=== PATIENT | female | born 1950 ===

== ENCOUNTER 2024-09-03 12:11 | Emergency (ER) | payer MEDICARE, OTHER, SELFPAY ==
[2024-09-03 12:12] VITALS: BP 127/85
--- NOTE | 2024-09-03 12:38 | ED.GENMED ---
History of Present Illness
General
Chief Complaint: Musculo-Skeletal Complaint
Source: patient
Time Seen by Provider: 09/03/24 12:21
History of Present Illness
History of Present Illness:
74yoF with a history of Grave's disease s/p thyroidectomy presenting with her for evaluation of neck pain. Patient woke up yesterday morning with bilateral shoulder pain. She describes a tightness in her muscles and pain is worse with
movement. She was lifting heavy boxes the day before her symptoms started. She denies any fall/trauma. Her pain today is mostly located in the lateral neck region. She has been taking Tylenol without relief. Pain is currently rated as an 8/10 in
severity. She was seen at urgent care yesterday and was given a prescription for a Medrol dose pack and Flexeril but the pharmacy was closed when she went to pick the prescriptions up. She denies any fever, vomiting, chest pain, photophobia. No
pain, paresthesias, or weakness of the extremities. No prior history of neck issues.
Phy Exam
General Physical Exam
General Presentation: well appearing and no apparent distress
General age: appears stated age
General Skin: warm and dry
General Habitus: normal
General Mental: alert
ENT Exam
ENT Exam: neck supple, normocephalic and other (+Tenderness to cervical portion of bilateral trapezius muscles. No midline spinous process tenderness. ROM decreased 2/2 pain although there is no meningismus. No skin changes.)
Cardiovascular Exam
Cardiovascular Exam: regular rate/rhythm, no murmur and normal peripheral pulses (2+ radial and DP pulses bilaterally)
Pulmonary Exam
Pulmonary Exam: lungs clear, no respiratory distress, no rales, no crackles and no rhonchi
Neurological Exam
Neurological Exam: alert and no motor deficits
[place] Coma Scale
Eye Opening: Spontaneous
Verbal Response: Oriented
Motor Response: Obeys Commands
GCS Total Score: 15
Skin Exam
Skin Exam: normal color and warm/dry
Psychiatric Exam
Psychiatric Exam: normal mood/affect
Course
Orders/Labs/Results
Orders:
Orders
09/03/24 12:36
Dexamethasone Sod Phosphate [Decadron] 10 mg IV NOW STA
Ketorolac [Toradol] 15 mg IV NOW STA
Oxycodone [Roxicodone] 5 mg PO NOW STA
09/03/24 12:37
Lidocaine [Lidocaine 4% Patch] 1 patch TOPICAL ONCE ONE
Apply Lidocaine patch(s) to:: neck
Vital Signs
Initial and Last Documented VS:
Initial Vital Signs
Temp Pulse Resp BP Pulse Ox
98.1 F 76 16 127/85 98
09/03/24 12:12 09/03/24 12:12 09/03/24 12:12 09/03/24 12:12 09/03/24 12:12
Last Documented Vital Signs
Temp Pulse Resp BP Pulse Ox
98.1 F 81 16 127/85 99
09/03/24 12:12 09/03/24 14:14 09/03/24 14:14 09/03/24 12:12 09/03/24 14:14
MDM/Problems Addressed
Differential Diagnosis Includes:
74yoF here with neck pain x 1 day. Started the day after lifting heavy boxes. No direct trauma. No improvement with Tylenol. No associated fevers, vomiting, photophobia. No CP/SOB. No weakness or paresthesias of the extremities. VSS. There is
reproducible muscular tenderness on exam. No midline spinous process tenderness. No meningismus. Differential diagnosis includes but is not limited to: muscular strain/spasm, doubt fracture, no evidence of radiculopathy
Initial ED plan: Presentation consistent with cervical strain. No indication for imaging at this time. IV Toradol, Decadron, oxycodone, and lidocaine patch ordered for pain.
*Critical Care Note
Total Time (30-74mins, 75-104mins- exclusive of procedures): Not Applicable
Update Note
Update Note:
Pain much improved on reassessment and is now a 3/10 in severity. Patient already dressed and ready to go home. She declines a prescription for pain medication. Supportive care discussed including heat, lidocaine patches, PRN Tylenol/ibuprofen.
Advised f/u with PCP and pain management. ED return precautions discussed. She expressed understanding and is in agreement with plan. She was discharged in stable condition.
ED Attending Note
-
Portions of this chart may have been created with voice recognition software.� Occasional wrong word or��sound alike� substitutions may have occurred due to the inherent limitations of voice recognition software.
Discharge Plan
Departure
Patient Disposition: Home (Routine Discharge)
Date of Disposition: 09/03/24
Time of Disposition: 14:04
Patient with high blood pressure during this ER visit?: No
Discharge Problem:
Strain of cervical portion of both trapezius muscles
Instructions: Cervical Muscle Strain
Referrals:
Galen Karimi MD [Active] -
Jose De Leon MD [Family Provider] -
Activity Restrictions/Additional Instructions:
Apply heat to affected area. Use lidocaine patches daily (12 hours on, 12 hours off). Take ibuprofen 400mg every 6 hour as needed for pain. You may continue to use Tylenol.
Please follow up with your family doctor and pain management.
Return to the ER with any new or worsening symptoms.
Interventions
Interventions:
*Risk Screen - Suicide Last Done: 09/03/24 13:33
*General Assessment Last Done: 09/03/24 13:33
*Neglect/Abuse Screening Last Done: 09/03/24 13:33
*ED COVID-19 Vaccine History Last Done: 09/03/24 13:33
*Nursing Disposition Last Done: 09/03/24 14:14
ED-Musculoskeletal Assessment Last Done: 09/03/24 13:34
Discharge Date and Time
Discharge Date/Time: 09/03/24 14:15
Print Language: [place]
[2024-09-03] MEDS: ROXICODONE 5 MG PO (13:12)
[2024-09-03] MEDS: DECADRON 10 MG IV (13:12)
[2024-09-03] MEDS: TORADOL 15 MG IV (13:12)
[2024-09-03] MEDS: LIDOCAINE 4% PATCH 1 PATCH TOPICAL (13:18)
== END 2024-09-03 14:15 | disposition home or self-care (01) ==
LOC: EMR 12:11
PROVIDERS: EMERGENCY PHYSICIAN Emergency Medicine; FAMILY PHYSICIAN Internal Medicine
DX: S16.1XXA Strain of muscle, fascia and tendon at neck level, initial encounter (principal); S29.012A Strain of muscle and tendon of back wall of thorax, initial encounter; X58.XXXA Exposure to other specified factors, initial encounter; E89.0 Postprocedural hypothyroidism
CPT/HCPCS: 99282; 96374; 96375

== ENCOUNTER 2025-03-16 13:27 | Emergency (ER) | payer MEDICARE, OTHER, SELFPAY ==
[2025-03-16 13:34] VITALS: BP 118/84
[2025-03-16 13:55] LABS: % Basophils 0.2 % (0-2); % Eosinophils 0.5 % (0-6); % Immature Granulocytes 0.2 % (0-0.5); % Monocytes 6.4 % (1.7-9.3); % Neutrophils 66.7 % (42.2-75.2); Absolute Lymphocytes 2.2 10^3/uL (1.2-3.4); Absolute Monocytes 0.5 10^3/uL (0.1-0.6); Absolute Neutrophils 5.6 10^3/uL (1.4-6.5); Hematocrit 44.4 % (37.0-47.0); Mean Corp Hgb Conc. 33.8 g/dL (33.0-37.0); Mean Corpuscular Hgb 31.2 pg (27.0-31.0); Mean Corpuscular Volume 92.3 fL (81.0-99.0); Mean Platelet Volume 10.5 fL (7.4-10.4); Nucleated Red Blood Cells % 0 %; Platelet Count 202 10^3/uL (130-400); Red Blood Cell Count 4.81 10^6/uL (4.20-5.40); Red Cell Dist. Width 14.4 % (11.5-14.5); White Blood Cell Count 8.4 10^3/uL (4.8-10.8)
[2025-03-16 14:09] LABS: ALT (SGPT) 20 U/L (0-35); AST (SGOT) 26 U/L (14-36); Albumin 4.6 g/dl (3.5-5.0); Alkaline Phosphatase 41 U/L (38-126); Blood Urea Nitrogen 10 mg/dl (7-17); Calcium 10.2 mg/dl (8.4-10.2); Carbon Dioxide 27 mmol/L (22-30); Chloride 112 mmol/L (98-107); Glucose 96 mg/dl (70-99); Potassium 4.3 mmol/L (3.5-5.1); Sodium 146 mmol/L (135-145); Total Bilirubin 0.7 mg/dl (0.2-1.3); Total Protein 7.8 g/dl (6.3-8.2); eGFR > 60.00
[2025-03-16 14:10] LABS: INR 1.04; PT 13.9 Sec (11.4-14.6)
[2025-03-16 14:21] LABS: NT-proBNP 234 pg/ml; Troponin I < 0.012 ng/ml
[2025-03-16 16:19] VITALS: BP 145/77
[2025-03-16 17:07] LABS: TSH Reflex To Free T4 1.34 uIU/ml (0.47-4.68)
--- NOTE | 2025-03-16 17:36 | ED.GENMED ---
History of Present Illness
General
Chief Complaint: Fatigue
Source: patient
Exam Limitations: none
Time Seen by Provider: 03/16/25 15:34
History of Present Illness
History of Present Illness:
Note:
CHIEF COMPLAINT(S)
Fatigue and lack of energy for three days.
HISTORY OF PRESENT ILLNESS
The patient is a 75-year-old female who presented with fatigue and lack of energy for the past three days. According to her spouse, the patient has not had energy and was brought in for evaluation. The patient states, 'I dont feel like doing
anything.' She has not been experiencing dyspnea, chest pain, nocturnal fever, rash, or tick bites. There is a notable history of thyroid issues, and it was mentioned that she has been out of her levothyroxine medication. The patient stated, 'I
always take that,' in reference to her thyroid medication. The suggest the medication has not been refilled recently, with the last prescription being from months prior. She denied any musculoskeletal pain, cough, or headaches. The spouse
added that since settling into a new residence six months ago, there has been a significant adjustment period, which may contribute to her stress level.
ADDITIONAL HISTORY OBTAINED FROM SOURCES OTHER THAN THE PATIENT
Per the spouse, the patient has been without energy and seemed very slow upon arrival. Additionally, they provided a list of current medications and noted that levothyroxine is currently unavailable but that the patient regularly takes donepezil,
atorvastatin, and memantine.
CHRONIC MEDICAL CONDITIONS SIGNIFICANTLY AFFECTING CARE
- Thyroid disorder (possible hypothyroidism due to medication non-adherence).
- Hypertension (taking atorvastatin).
- Alzheimer�s Disease (taking donepezil and memantine).
SOCIAL DETERMINANTS AFFECTING HEALTH
The patient and her spouse recently moved to a new state and are experiencing stress related to this transition. They now live in an in-law suite, which is a new living situation for them.
MEDICATIONS
- Donepezil
- Atorvastatin
- Memantine
- Out of levothyroxine
REVIEW OF SYSTEMS
- General: Fatigue and lack of energy
- Cardiovascular: No chest pain
- Respiratory: No shortness of breath
- Neurological: No headaches, no balance issues reported
- Musculoskeletal: No muscle aches
- Dermatological: No rash
PHYSICAL EXAM
- Lungs: Clear to auscultation
- Cardiovascular: No abnormalities detected upon auscultation
Nursing notes reviewed and vital signs reviewed.
PROBLEM LIST
Acute:
- Fatigue, potentially due to thyroid hormone deficiency
Chronic:
- Hypothyroidism
- Hypertension
- Alzheimers Disease
PLAN
Blood work has been ordered to include a thyroid function test. Additional orders are being placed to check thyroid levels. The patient is advised to follow up after the lab results for further evaluation and management.
DIFFERENTIAL DIAGNOSIS
The Differential Diagnosis includes, in no particular order and is not limited to:
1. Hypothyroidism
2. Anemia
3. Electrolyte imbalance
4. Viral illness
5. Depression
EKG
My independent EKG interpretation is:
- Rhythm: Sinus rhythm
- Heart rate: 69 beats per minute
- No ischemic changes noted
Phy Exam
Physical Exam
Physical Exam:
see above
Course
Orders/Labs/Results
Orders:
Orders
03/16/25 13:37
EKG [Electrocardiogram (*1)] Urgent
Reason for Study: Shortness of Breath
EKG- Treatment ONCE
03/16/25 13:48
Complete Blood Count/With Diff Urgent
Comprehensive Metabolic Panel Urgent
Pro-BNP [NT-proBNP] Urgent
Prothrombin Time Urgent
TSH Reflex To Free T4 Urgent
Comment: ADD ON
Troponin I Urgent
03/16/25 15:47
Add On- LAB Urgent
Tests Added?: tsh reflex to t4
Abnormal Lab Results
03/16/25
13:48
MCH 31.2 H pg
(27.0-31.0)
MPV 10.5 H fL
(7.4-10.4)
Sodium 146 H mmol/L
(135-145)
Chloride 112 H mmol/L
(98-107)
03/16/25 13:48
03/16/25 13:48
Vital Signs
Initial and Last Documented VS:
Initial Vital Signs
Temp Pulse Resp BP Pulse Ox
98.2 F 77 17 118/84 97
03/16/25 13:34 03/16/25 13:34 03/16/25 13:34 03/16/25 13:34 03/16/25 13:34
Last Documented Vital Signs
Temp Pulse Resp BP Pulse Ox
98.2 F 77 17 145/77 97
03/16/25 13:34 03/16/25 13:34 03/16/25 13:34 03/16/25 16:19 03/16/25 13:34
*Critical Care Note
Total Time (30-74mins, 75-104mins- exclusive of procedures): Not Applicable
Update Note
Update Note:
03/16/25 - 17:35
Thyroid test results have returned normal. Comprehensive blood work, including tests for anemia, electrolyte balance, and renal and hepatic function, all show normal results. Cardiac function is also assessed and found to be normal. The current
fatigue could potentially be due to a viral infection. No new medications have been recently introduced.
ED Attending Note
-
Portions of this chart may have been created with voice recognition software.� Occasional wrong word or��sound alike� substitutions may have occurred due to the inherent limitations of voice recognition software.
Discharge Plan
Departure
Patient Disposition: Home (Routine Discharge)
Date of Disposition: 03/16/25
Time of Disposition: 17:37
Patient with high blood pressure during this ER visit?: No
Discharge Problem:
Fatigue
Instructions: Fatigue (DC)
Referrals:
NONE,* [Family Provider, Internal Medicine]
Activity Restrictions/Additional Instructions:
Please return here if needed. Continue current medication regimen
Interventions
Interventions:
*Risk Screen - Suicide Last Done: 03/16/25 13:36
*General Assessment Last Done: 03/16/25 13:36
*Neglect/Abuse Screening Last Done: 03/16/25 13:36
*ED COVID-19 Vaccine History Last Done: 03/16/25 13:36
Discharge Date and Time
Print Language: UPPER [place]
== END 2025-03-16 17:56 | disposition home or self-care (01) ==
LOC: EMR 13:27
PROVIDERS: EMERGENCY PHYSICIAN Emergency Medicine
DX: R53.83 Other fatigue (principal); I10 Essential (primary) hypertension; E07.9 Disorder of thyroid, unspecified; F02.80 Dementia in other diseases classified elsewhere, unspecified severity, without behavioral disturbance, psychotic disturbance, mood disturbance, and anxiety; G30.9 Alzheimer's disease, unspecified; Z79.899 Other long term (current) drug therapy
CPT/HCPCS: 99283; 80053; 83880; 84443; 84484; 85025; 85610; 93005